=== PATIENT | female | born 1980 | race Asian ===

== ENCOUNTER 2017-11-19 15:25 | Inpatient (IN) | payer OTHER ==
[2017-11-19] MEDS: ELECTROLYTE-148 SOLN 1,000 ML IV SCH (15:45)
[2017-11-19] MEDS ORDERED: FENTANYL/BUPIVACAINE/NS/PF - PCEA - 50 ML DISP.SYRIN EP ONE (16:02)
[2017-11-19] MEDS ORDERED: BUPIVACAINE HCL/PF 0.25% (2.5MG/ML) 10 ML VIAL ONE (16:05)
[2017-11-19] MEDS: FENTANYL/BUPIVACAINE/NS/PF - PCEA - 50 ML DISP.SYRIN EP SCH (16:10)
[2017-11-19 16:14] VITALS: BMI 26.2
[2017-11-19 16:28] LABS: BASO % 0.5 % (0-2.0); EOS % 0.1 % (0-4.5); HEMATOCRIT 37.9 % (32.4-45.2); HEMOGLOBIN 12.5 GM/dL (10.7-15.3); LYMPH % 18.1 % (8-40); MCH 27.2 pg (25.7-33.7); MEAN CELL VOLUME 82.4 fl (80-96); MEAN PLT VOLUME 8.5 fl (7.5-11.1); MONO % 6.5 % (3.8-10.2); NEUT % 74.8 % (42.8-82.8); PLATELET COUNT 234 K/MM3 (134-434); RDW 17.8 % (11.6-15.6); WHITE BLOOD COUNT 10.6 K/mm3 (4.0-10.0)
--- NOTE | 2017-11-19 16:28 | HP ---
Past Medical History - Primary Care Physician PCP:: Eric Evans - Admission Chief Complaint: 36yo P1 with at EGA 38w4d admitted spontaneous labor. 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: No: Alzheimer's, CVA, Dementia, Migraine, Multiple Sclerosis, Peripheral Neuropathy, Parkinson's, Seizure, Syncope, TIA, Vertigo, Other Cardiovascular: No: AFIB, Aneurysm, Aortic Insufficiency, Aortic Stenosis, CAD, CHF, Deep Vein Thrombosis, HTN, Hyperlipdemia, ND, Mitral Insufficiency, Mitral Stenosis, Murmur, Pulmonary Hypertension, Other Pulmonary: No: Asthma, Bronchitis, Cancer, COPD, O2 Dependent, Pneumonia, Previously Intubated, Pulmonary Embolus, Pulmonary Fibrosis, Sleep Apnea, Other Gastrointestinal: No: Ascites, Cancer, Constipation, Crohn's Disease, Diverticulitis, Diverticulosis, Esophageal Varices, Gastritis, GERD, GI Bleed, Hemorrhoids, Hiatal Hernia, Inflamatory Bowel Disease, Irritable Bowel Disease, Pancreatitis, Peptic Ulcer Disease, Ulcerative Colitis, Other Hepatobiliary: No: Cirrhosis, Cholelithiasis, Cholecystitis, Choledocholithiasis , Hepatitis A, Hepatitis B, Hepatitis C, Other Renal/: No: Renal Failure, Renal Inusuff, BPH, Cancer, Hematuria, Hemodialysis , Neurogenic Bladder, Renal Calculi, UTI, Other Reproductive: No: Ectopic , Endometriosis, Fibroids, PID, Polycystic Ovary Syndrome, Postmenopausal, Other ...: 2 ...Para: 1 () ...Term: 1 ...: 0 ...Spon : 0 ...Induced : 0 ...Multiple Gestation: 0 ...LMP: 02/22/17 ... Weeks Gestation by Dates: 38.4 ...EDC by Dates: 11/29/17 ...EDC by Sono: 11/30/17 Heme/Onc: No: Anemia, B12 Deficiency, Bleeding Disorder, Cancer, Current Chemotherapy, Current Radiation Therapy, Hemochromatosis, Hypercoaguable State, Myeloproliferative Synd, Sickle Cell Disease, Sickle Cell Trait, Thrombocytopenia, Other Infectious Disease: No: AIDS, C-Diff, Herpes Zoster, HIV, MRSA, STD's, Tuberculosis, VREF, Other Psych: No: Addictions, Anxiety, Bipolar, Depression, Panic, Psychosis, Schizophrenia, Other Musculoskeletal: No: Bursitis, Chronic low back pain, Hemiparesis, Hemiplegia, Osteoarthritis, Paraplegia, Other Rheumatology: No: Fibromyalgia, Gout, Lupus, Rheumatoid Arthritis, Sarcoidosis, Vasculitis, Other ENT: Yes: Other (Goiter) Endocrine: Yes: Hyperthyroidism Dermatology: No: Basal Cell, Cellulitis, Eczema, Melanoma, Psoriasis, Squamous Cell, Other - Past Surgical History Past Surgical History: Yes: None Hx Myomectomy: No Hx Transabdominal Cerclage: No - Smoking History Smoking history: Never smoked Have you smoked in the past 12 months: No - Alcohol/Substance Use Hx Alcohol Use: No History of Substance Use: reports: None - Social History Usual Living Arrangement: Yes: With Spouse, With Child ADL: Independent 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 History of Recent Travel: No Home Medications - Allergies Allergies/Adverse Reactions: Allergies Allergy/AdvReac Type Severity Reaction Status Date / Time No Known Allergies Allergy Verified 11/19/17 16:14 - Home Medications Home Medications: Ambulatory Orders Ferrous Sulfate [Feosol] 325 mg PO DAILY 11/19/17 Pnv No.95/Ferrous Fum/Folic AC [ Vitamin Tablet] 1 each PO DAILY Family Disease History - Family Disease History Family Disease History: Other: Father (HTN), Brother (Trisomy) Review of Systems - Review of Systems Constitutional: reports: No Symptoms Eyes: reports: No Symptoms HENT: reports: No Symptoms Neck: reports: No Symptoms Cardiovascular: reports: No Symptoms Respiratory: reports: No Symptoms Gastrointestinal: reports: No Symptoms Genitourinary: reports: No Symptoms Breasts: reports: No Symptoms Reported Musculoskeletal: reports: No Symptoms Integumentary: reports: No Symptoms Neurological: reports: No Symptoms Endocrine: reports: No Symptoms Hematology/Lymphatic: reports: No Symptoms Psychiatric: reports: No Symptoms Pain Intensity: 8 Physical Exam - Maternity Vital Signs: Vital Signs Temperature 98.0 F 11/19/17 15:35 Pulse Rate 86 11/19/17 15:35 Respiratory Rate 20 11/19/17 15:35 Blood Pressure 131/85 11/19/17 15:35 O2 Sat by Pulse Oximetry (%) Constitutional: Yes: Well Nourished, No Distress, Calm Eyes: Yes: WNL, Conjunctiva Clear HENT: Yes: WNL, Atraumatic, Normocephalic Neck: Yes: WNL, Supple, Trachea Midline Cardiovascular: Yes: WNL, Regular Rate and Rhythm Lungs: Clear to auscultation, Normal air movement - Abdominal Exam/OB Fundal Height: 38 Number of Fetuses: Single Presentation: Vertex Contractions: Yes Regularity: Regular Intensity: Mod/Strong Monitor Mode: External Heart Rate (range): 145 Heart Rate Location: Midline Category: I Accelerations: Non-Uniform Decelerations: None - Vaginal Exam/OB Vaginal Bleediing: No Speculum Exam: No Dilatation (cm): 6 Effacement (%): 90 Amniotic Membrane Status: Bulging Presentation: Vertex/Position Station: -1 - Physical Exam Musculoskeletal: Yes: WNL Extremities: Yes: WNL Edema: Yes Edema: LLE: Trace, RLE: Trace Integumentary: Yes: WNL Deep Tendon Reflex Grade: Normal +2 ...Motor Strength: WNL Psychiatric: Yes: WNL, Alert, Oriented Hemorrhage Risk Assessment - Risk Factors Medium Risk Factors: Yes: None High Risk Factors: Yes: None Risk Score: 1 Risk Level: Medium Risk Assessment/Plan 36yo P1 with at EGA 38w4d admitted spontaneous labor. Pt is in active labor and requested epidural. Fetus with category I tracing. Anesthesia is at bedside. Plan AROM after epidural.
[2017-11-19] MEDS ORDERED: AMPICILLIN - 2 GM in SODIUM CHLORIDE 100 ML IVPB ONE (16:32)
[2017-11-19] MEDS ORDERED: NALOXONE HCL 0.4 MG/ML VIAL IVPUSH PRN (16:35)
[2017-11-19 16:43] LABS: INR 0.88 (0.83-1.09); PROTHROMBIN TIME (PATIENT) 10.4 SEC (9.7-13.0)
[2017-11-19 16:46] LABS: ACTIVATED PTT 25.2 SECONDS (25.2-36.5)
[2017-11-19 16:51] LABS: ANION GAP 12 MMOL/L (8-16); BLOOD UREA NITROGEN 8 mg/dL (7-18); CALCIUM 8.4 mg/dL (8.5-10.1); CHLORIDE 104 mmol/L (98-107); CO2 22 mmol/L (21-32); CREATININE 0.5 mg/dL (0.55-1.3); GLUCOSE,RANDOM 100 mg/dL (74-106); SODIUM 138 mmol/L (136-145)
[2017-11-19] MEDS ORDERED: LIDOCAINE HCL 1% PRESERVATIVE FREE - 30ML VIAL ONE (17:31)
[2017-11-19] MEDS ORDERED: OXYTOCIN 20 UNITS in 0.9% NS 20 UNIT/1,000 ML INFUS.BAG IV ONE ×2 (17:31→20:56)
[2017-11-19] MEDS: OXYTOCIN 20 UNITS in 0.9% NS 20 UNIT/1,000 ML INFUS.BAG IV SCH (18:00)
[2017-11-19] MEDS ORDERED: METHYLERGONOVINE MALEATE 0.2 MG/1 ML AMP IM PRN (18:48)
[2017-11-19] MEDS ORDERED: IBUPROFEN 600 MG TABLET (FP) PO PRN (18:48)
[2017-11-19] MEDS ORDERED: BENZOCAINE 20% 57 GM BOTTLE TP PRN (18:48)
[2017-11-19] MEDS ORDERED: BISACODYL 10 MG SUPP.RECT RC PRN (18:48)
[2017-11-19] MEDS ORDERED: WITCH HAZEL 50% (TUCKS) 40 PAD/JAR PAD TP PRN (18:48)
[2017-11-19] MEDS ORDERED: BENZOCAINE 28 GM HEMORRHOIDAL OINTMENT TP PRN (18:48)
--- NOTE | 2017-11-19 18:51 | PN ---
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
[2017-11-19] MEDS: AMPICILLIN - 1 GM in SODIUM CHLORIDE 100 ML IVPB SCH (22:09)
[2017-11-20] MEDS: AMPICILLIN - 1 GM in SODIUM CHLORIDE 100 ML IVPB SCH ×2 (01:34→23:25)
[2017-11-20 07:40] LABS: BASO % 0.2 % (0-2.0); EOS % 0.3 % (0-4.5); HEMATOCRIT 26.8 % (32.4-45.2); LYMPH % 18.1 % (8-40); MCH 27.5 pg (25.7-33.7); MCHC 33.3 g/dl (32.0-36.0); MEAN CELL VOLUME 82.5 fl (80-96); MEAN PLT VOLUME 8.3 fl (7.5-11.1); MONO % 7.7 % (3.8-10.2); NEUT % 73.7 % (42.8-82.8); PLATELET COUNT 168 K/MM3 (134-434); RBC 3.25 M/mm3 (3.60-5.2); RDW 17.9 % (11.6-15.6); WHITE BLOOD COUNT 12.4 K/mm3 (4.0-10.0)
[2017-11-20] MEDS: PRENATAL VITAMINS W/ FOLIC ACID TABLET (FP) PO SCH (09:24)
[2017-11-20] MEDS: ACETAMINOPHEN 325 MG TABLET (FP) PO PRN ×2 (09:27→23:28)
--- NOTE | 2017-11-20 18:59 | PN ---
Post Progress Note - Subjective Subjective: No complaints Post Day: 1 Type of Delivery: Vital Signs: Vital Signs Temperature 97.8 F 11/20/17 13:43 Pulse Rate 82 11/20/17 13:43 Respiratory Rate 18 11/20/17 13:43 Blood Pressure 104/80 11/20/17 13:43 O2 Sat by Pulse Oximetry (%) 100 11/19/17 17:45 Breast Exam: Yes: Soft Uterus: Yes: Fundus Firm Abdomen/GI: Yes: Abdomen soft, Passing flatus, Tolerating PO Lochia: Yes: Rubra Lochia, amount: Small Extremities: Yes: Calves non-tender Perineum: Yes: Laceration (repair intact) Activity: Ambulating - Labs Labs: CBC WBC 12.4 K/mm3 (4.0-10.0) H 11/20/17 07:02 RBC 3.25 M/mm3 (3.60-5.2) L 11/20/17 07:02 Hgb 9.0 GM/dL (10.7-15.3) L 11/20/17 07:02 Hct 26.8 % (32.4-45.2) L D 11/20/17 07:02 MCV 82.5 fl (80-96) 11/20/17 07:02 MCH 27.5 pg (25.7-33.7) 11/20/17 07:02 MCHC 33.3 g/dl (32.0-36.0) 11/20/17 07:02 RDW 17.9 % (11.6-15.6) H 11/20/17 07:02 Plt Count 168 K/MM3 (134-434) D 11/20/17 07:02 MPV 8.3 fl (7.5-11.1) 11/20/17 07:02 Absolute Neuts (auto) 9.2 K/mm3 (1.5-8.0) H 11/20/17 07:02 Neutrophils % 73.7 % (42.8-82.8) 11/20/17 07:02 Lymphocytes % 18.1 % (8-40) 11/20/17 07:02 Monocytes % 7.7 % (3.8-10.2) 11/20/17 07:02 Eosinophils % 0.3 % (0-4.5) D 11/20/17 07:02 Basophils % 0.2 % (0-2.0) 11/20/17 07:02 Nucleated RBC % 0 % (0-0) 11/20/17 07:02 Assessment/Plan 36yo P2 s/p , doing well stable, afebrile. Asymptomatic for anemia care instructions reviewed. Continue routine care. Ambulation encouraged Discharge instruction reviewed.
--- NOTE | 2017-11-20 19:21 | DS ---
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 Vital Signs: Vital Signs Temperature 97.8 F 11/20/17 13:43 Pulse Rate 82 11/20/17 13:43 Respiratory Rate 18 11/20/17 13:43 Blood Pressure 104/80 11/20/17 13:43 O2 Sat by Pulse Oximetry (%) 100 11/19/17 17:45 Constitutional: Yes: Well Nourished, No Distress, Calm Eyes: Yes: WNL, Conjunctiva Clear HENT: Yes: WNL, Atraumatic, Normocephalic Neck: Yes: WNL, Supple, Trachea Midline Cardiovascular: Yes: WNL, Regular Rate and Rhythm Respiratory: Yes: WNL, Regular, CTA Bilaterally Gastrointestinal: Yes: WNL, Normal Bowel Sounds, Soft ...Rectal Exam: Yes: Deferred Renal/: Yes: WNL ....Post : Yes: Uterus firm, Uterus non-tender, Slight lochia rubra Breast(s): Yes: WNL Musculoskeletal: Yes: WNL Extremities: Yes: WNL Edema: LLE: Trace, RLE: Trace Integumentary: Yes: WNL Neurological: Yes: WNL, Alert, Oriented ...Motor Strength: WNL Psychiatric: Yes: WNL, Alert, Oriented Labs: CBC, BMP 11/20/17 07:02 11/19/17 16:05 Delivery - Delivery Vaginal Delivery: No Problems, Spontaneous Type of Anesthesia: Epidural Episiotomy/Laceration: Perineal Extension/lac, 2nd degree EBL (cc): 350 Delivery, Single - Stages of Labor Date 1st Stage Initiatied: 11/19/17 Time 1st Stage Initiated: 10:00 Date 2nd Stage Initiated: 11/19/17 Time 2nd Stage Initiated: 17:35 Date of Delivery: 11/19/17 Time of Delivery: 17:56 Date Placenta Delivered: 11/19/17 Time Placenta Delivered: 18:00 Placenta: Yes: Spontaneous, Normal Configuration - Condition of Decorator Consultant/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 Present: No Infant Gender: Female Weight: 3.005 kg Position: Right, OA Total Hours ROM (Hrs/Mins): 1hr 25min - 1 Minute Total Score: 9 5 Minutes Total Score: 9 - [place] Feeding Plan Initial Plan: Elected not to breastfeed exclusively throughout hospitalization Benefits of Exclusively reinforced: Yes Discharge Summary Reason For Visit: LABOR ADMISSION Spontaneous labor Anemia Procedures: Principal: Hospital Course: Normal recovery Condition: Good - Instructions Diet, Activity, Other Instructions: Physical activity Resume your normal everyday activity as tolerated no heavy lifting or exercise until seen by your surgeon. You may walk unlimited hannah of and climb stairs. You may resume driving the car when you feel safe and comfortable behind the wheel. No sexual activity as instructed. Wound care If you have a bandage, leave it on, and keep dry for 48-72 hours. After that time discard the outer bandage. If they are tapes on the skin under the out of bandage leave them in place. They will peel off in the next 7 to 10 days. Do Not Peel them off. You may shower the day after surgery. If there are tapes present on the skin, you may shower over them. Diet There are no dietary restrictions. Eat healthy, high-fiber foods. Drink 6 to 8 glasses of liquid each day. This will assist in keeping your bowels are regular. Pain management You may take Tylenol or acetaminophen or Ibuprofen (for example, Motrin, Advil etc.) from my pain prescription medication is ordered should be taken as prescribed for moderate to severe pain. Call MD for any of the following: Severe pain not relieved by medication Fever of 101 or higher Excessive bleeding or drainage on dressing Inability to urinate Referrals: Keturah Brand MD [Staff Physician] - Disposition: HOME - Home Medications Comprehensive Discharge Medication List: Ambulatory Orders Ferrous Sulfate [Feosol] 325 mg PO DAILY 11/19/17 Pnv No.95/Ferrous Fum/Folic AC [ Vitamin Tablet] 1 each PO DAILY
[2017-11-20] MEDS ORDERED: SENNOSIDES/DOCUSATE COMBO (SENNA PLUS) TABLET (UD) PO PRN (22:00)
[2017-11-20] MEDS: ELECTROLYTE-148 SOLN 1,000 ML IV SCH (23:27)
[2017-11-20] MEDS: FENTANYL/BUPIVACAINE/NS/PF - PCEA - 50 ML DISP.SYRIN EP SCH (23:27)
[2017-11-20] MEDS: OXYTOCIN 20 UNITS in 0.9% NS 20 UNIT/1,000 ML INFUS.BAG IV SCH (23:29)
[2017-11-21 09:04] VITALS: BP 111/66; PULSE 71; TEMP 98.4
[2017-11-21] MEDS: ACETAMINOPHEN 325 MG TABLET (FP) PO PRN (10:22)
[2017-11-21] MEDS: PRENATAL VITAMINS W/ FOLIC ACID TABLET (FP) PO SCH (10:22)
== END 2017-11-21 11:25 | disposition home or self-care (01) | DRG 807 ==
LOC: JDEL 15:25 → JLDR 15:35 → J3W 22:06
PROVIDERS: ADMIT Obstetrics & Gynecology; ATTEND Obstetrics & Gynecology
PROC: 0KQM0ZZ Repair Perineum Muscle, Open Approach (ICD-10-PCS; principal; 2017-11-19)
PROC: 10E0XZZ Delivery of Products of Conception, External Approach (ICD-10-PCS; 2017-11-19)
DX: O99.284 Endocrine, nutritional and metabolic diseases complicating childbirth (principal); O70.1 Second degree perineal laceration during delivery; Z37.0 Single live birth; Z3A.38 38 weeks gestation of pregnancy
CPT/HCPCS: 36415; 59409; 80048; 85025; 85610; 85730; 86480; 86593; 86850; 86900; 86901; 87389

== ENCOUNTER 2022-10-06 04:56 | Day surgery (SDC) | payer BC, OTHER ==
[2022-10-05 08:48] VITALS: BMI 23.6
[2022-10-06] MEDS ORDERED: IBUPROFEN 800 MG/8 ML IJ IVPB PRN (06:52)
[2022-10-06] MEDS ORDERED: IBUPROFEN 600 MG TABLET (FP) PO PRN (06:52)
[2022-10-06] MEDS ORDERED: oxyCODONE HCL 5 MG TABLET PO PRN ×2 (06:52→09:02)
[2022-10-06] MEDS ORDERED: ONDANSETRON 4 MG/2 ML VIAL IVPUSH PRN ×2 (06:52→09:02)
[2022-10-06] MEDS ORDERED: ELECTROLYTE-148 SOLN 1,000 ML IV SCH (07:00)
[2022-10-06 07:03] LABS: HEMATOCRIT 43.5 % (32.4-45.2); HEMOGLOBIN 14.4 GM/dL (10.7-15.3); MCH 28.8 pg (25.7-33.7); MCHC 33.1 g/dl (32.0-36.0); MEAN CELL VOLUME 87.1 fl (80-96); PLATELET COUNT 321 10^3/uL (134-434); RDW 12.8 % (11.6-15.6); WHITE BLOOD COUNT 7.4 K/mm3 (4.0-10.0)
[2022-10-06] MEDS ORDERED: BUPIVACAINE HCL/PF 0.25% (2.5MG/ML) 10 ML VIAL ONE (07:06)
[2022-10-06] MEDS ORDERED: PROPOFOL 20 ML ONE (07:52)
[2022-10-06] MEDS ORDERED: SUCCINYLCHOLINE CHLORIDE 200 MG/10 ML SYRINGE ONE (07:52)
[2022-10-06] MEDS ORDERED: ROCURONIUM BROMIDE 50 MG/5 ML SYRINGE ONE (07:52)
[2022-10-06] MEDS ORDERED: BUPIVACAINE HCL/PF 0.25% (2.5MG/ML) 10 ML VIAL IJ ONE (08:28)
[2022-10-06] MEDS ORDERED: NEOSTIGMINE METHYLSULFATE 0.5 MG/1 ML - 10 ML MDV ONE (08:43)
[2022-10-06] MEDS ORDERED: KETOROLAC TROMETHAMINE 30 MG/1 ML VIAL ONE ×2 (08:43)
[2022-10-06] MEDS ORDERED: DEXAMETHASONE SOD PHOSPHATE 4 MG/1 ML VIAL ONE (08:43)
[2022-10-06] MEDS ORDERED: GLYCOPYRROLATE 0.2 MG/1 ML VIAL ONE ×2 (08:43)
[2022-10-06] MEDS ORDERED: ONDANSETRON 4 MG/2 ML VIAL ONE (08:43)
[2022-10-06] MEDS ORDERED: LACTATED RINGERS SOLUTION 1,000 ML IV SCH (09:15)
[2022-10-06 11:45] VITALS: BP 123/85; PULSE 84; RESP 20; TEMP 97.8
== END 2022-10-06 12:02 | disposition home or self-care (01) ==
LOC: JASU-SURG 04:56
PROVIDERS: ATTEND Obstetrics & Gynecology
PROC: 0UT74ZZ Resection of Bilateral Fallopian Tubes, Percutaneous Endoscopic Approach (ICD-10-PCS; principal; 2022-10-06 07:30)
DX: Z30.2 Encounter for sterilization (principal); N83.8 Other noninflammatory disorders of ovary, fallopian tube and broad ligament
CPT/HCPCS: 36415; 81025; 84702; 85027; 86850; 86900; 86901; 88302-TC; 94760